=== PATIENT | male | born 1990 ===

== ENCOUNTER 2020-09-19 02:05 | Emergency (ER) | payer SELFPAY ==
[~2020-09-19] VITALS: Ht 172.7 cm; Wt 68.0 kg
[2020-09-19 02:06] VITALS: BP 123/90
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
== END 2020-09-19 03:01 | disposition left against medical advice (07) ==
LOC: ED 02:30
DX: M54.5 Low back pain (principal); Z53.21 Procedure and treatment not carried out due to patient leaving prior to being seen by health care provider